=== PATIENT | female | born 1985 | race Caucasian/White ===

== ENCOUNTER 2017-11-10 13:05 | Emergency (ER) | payer OTHER ==
[~2017-11-10] VITALS: Ht 157.5 cm; Wt 61.2 kg
[2017-11-10] MEDS ORDERED: XANAX 0.5 MG0.5 M1 PO (14:51)
== END 2017-11-10 14:59 | disposition home or self-care (01) ==
LOC: EDBD 13:05 → ER 13:05
DX: M79.651 Pain in right thigh (principal)

== ENCOUNTER 2017-11-18 11:12 | Emergency (ER) | payer OTHER ==
[~2017-11-18] VITALS: Ht 157.5 cm; Wt 61.2 kg
[~2017-11-18 11:12] MED LIST: XANAX 0.5 MG0.5 M1 PO
[2017-11-18] MEDS ORDERED: MOBIC7.5 MG PO (12:29)
== END 2017-11-18 12:44 | disposition home or self-care (01) ==
LOC: ER 11:12
DX: S63.690A Other sprain of right index finger, initial encounter (principal); Z86.718 Personal history of other venous thrombosis and embolism; W23.0XXA Caught, crushed, jammed, or pinched between moving objects, initial encounter; Y93.89 Activity, other specified; Y92.89 Other specified places as the place of occurrence of the external cause; Y99.8 Other external cause status

== ENCOUNTER 2017-11-23 13:56 | Emergency (ER) | payer OTHER ==
[~2017-11-23] VITALS: Ht 157.5 cm; Wt 61.2 kg
[~2017-11-23 13:56] MED LIST changes: +MOBIC7.5 MG PO
[2017-11-23] MEDS ORDERED: MOBIC15 MG PO (14:33)
[2017-11-23] MEDS ORDERED: ULTRAM 50MG TAB50 MG PO (14:33)
[2017-11-23 15:00] VITALS: BP 127/88
== END 2017-11-23 15:01 | disposition home or self-care (01) ==
LOC: ER 13:56
DX: H92.01 Otalgia, right ear (principal)

== ENCOUNTER 2018-02-14 15:38 | Emergency (ER) | payer OTHER ==
[~2018-02-14] VITALS: Ht 157.5 cm; Wt 61.2 kg
[~2018-02-14 15:38] MED LIST changes: +MOBIC15 MG PO; +ULTRAM 50MG TAB50 MG PO
[2018-02-14 16:02] VITALS: BP 132/83
[2018-02-14] MEDS ORDERED: HYDROCODONE-AP1 EAC6 PO (17:14)
== END 2018-02-14 19:26 | disposition home or self-care (01) ==
LOC: ER 15:38
DX: M53.3 Sacrococcygeal disorders, not elsewhere classified (principal); Z90.10 Acquired absence of unspecified breast and nipple; W06.XXXA Fall from bed, initial encounter; Y93.89 Activity, other specified; Y92.89 Other specified places as the place of occurrence of the external cause; Y99.8 Other external cause status

== ENCOUNTER 2018-08-04 11:59 | Emergency (ER) | payer OTHER ==
[~2018-08-04] VITALS: Ht 162.6 cm; Wt 72.1 kg
[~2018-08-04 11:59] MED LIST changes: +HYDROCODONE-AP1 EAC6 PO
[2018-08-04 12:00] VITALS: BP 133/92
[2018-08-04 12:27] LABS: URINE BILIRUBIN NEGATIVE (Negative); URINE BLOOD 3+ (Negative); URINE CLARITY CLOUDY; URINE COLOR YELLOW; URINE GLUCOSE-RANDOM* NEGATIVE (Negative); URINE KETONES NEGATIVE (Negative); URINE LEUKOCYTES-REFLEX 2+ (Negative); URINE NITRITE-REFLEX NEGATIVE (Negative); URINE PROTEIN (DIPSTICK) TRACE (Negative)
[2018-08-04 12:34] LABS: SQUAMOUS 4-10 Moderate /LPF (0-3); URINE WBC-REFLEX >25 Many /HPF (0-5)
[2018-08-04 12:35] LABS: CASTS None Seen /LPF (None Seen); CRYSTALS None Seen /LPF (None Seen)
[2018-08-04] MEDS ORDERED: KEFLEX500 M2 PO (13:27)
[2018-08-04] MEDS ORDERED: FLAGYL500 M1 PO (13:27)
== END 2018-08-04 14:02 | disposition home or self-care (01) ==
LOC: ER 11:59
PROVIDERS: Emergency Medicine
DX: N76.0 Acute vaginitis (principal); B96.89 Other specified bacterial agents as the cause of diseases classified elsewhere; N39.0 Urinary tract infection, site not specified; F41.9 Anxiety disorder, unspecified; Z86.718 Personal history of other venous thrombosis and embolism; Z90.10 Acquired absence of unspecified breast and nipple

== ENCOUNTER 2018-10-20 10:24 | Emergency (ER) | payer OTHER ==
[~2018-10-20] VITALS: Ht 157.5 cm; Wt 68.0 kg
[~2018-10-20 10:24] MED LIST changes: +FLAGYL500 M1 PO; +KEFLEX500 M2 PO
[2018-10-20] MEDS ORDERED: TYLENOL325 MG PO (10:45)
[2018-10-20] MEDS ORDERED: IMITREX 25 MG T25 MG PO (10:46)
[2018-10-20 11:19] LABS: ABSOLUTE NEUTROPHILS 5.4 thou/uL (1.4-8.2); BASOPHILS 0.6 % (0.0-2.0); EOSINOPHILS 2.5 % (0.0-3.0); HEMATOCRIT 42.5 % (37.0-47.0); HEMOGLOBIN 13.9 gm/dL (12.0-15.0); LYMPHOCYTES 18.9 % (24.0-44.0); MCH 29.1 pg (26.0-34.0); MCHC 32.8 g/dL (28.0-37.0); MCV 88.5 fL (80.0-100.0); MONOCYTES 11.6 % (1.0-8.0); PLATELET COUNT 263 thou/uL (150-400); POLYS 66.4 % (36.0-66.0); RDW 13.7 % (10.5-14.5); WBC 8.1 thou/uL (4.0-11.0)
[2018-10-20 12:48] LABS: CALCIUM 8.6 mg/dL (8.5-10.1); CREATININE 0.8 mg/dL (0.6-1.0); POTASSIUM 3.8 mmol/L (3.5-5.1)
[2018-10-20 12:55] LABS: ALBUMIN 3.2 g/dL (3.4-5.0); TOTAL BILIRUBIN 0.3 mg/dL (<0.1-1.0); TOTAL PROTEIN 7.2 g/dL (6.4-8.2)
[2018-10-20] MEDS ORDERED: ONDANSETRON HCL4 M2 PO (13:50)
[2018-10-20] MEDS ORDERED: IMITREX 50 MG T50 MG PO (13:50)
[2018-10-20 14:09] VITALS: BP 134/68
== END 2018-10-20 14:14 | disposition home or self-care (01) ==
LOC: ER 10:24
PROVIDERS: Nurse Practitioner Family
DX: B34.9 Viral infection, unspecified (principal); R11.2 Nausea with vomiting, unspecified; F41.9 Anxiety disorder, unspecified; G43.909 Migraine, unspecified, not intractable, without status migrainosus; Z86.718 Personal history of other venous thrombosis and embolism; Z90.10 Acquired absence of unspecified breast and nipple

== ENCOUNTER 2020-01-14 10:30 | Emergency (ER) | payer OTHER ==
[~2020-01-14] VITALS: Ht 157.5 cm; Wt 68.0 kg
[~2020-01-14 10:30] MED LIST changes: +IMITREX 25 MG T25 MG PO; +IMITREX 50 MG T50 MG PO; +ONDANSETRON HCL4 M2 PO; +TYLENOL325 MG PO
[2020-01-14 10:33] VITALS: BP 130/89
== END 2020-01-14 11:36 | disposition home or self-care (01) ==
LOC: ER 10:30
DX: H83.8X1 Other specified diseases of right inner ear (principal); H92.01 Otalgia, right ear; R68.84 Jaw pain; F41.9 Anxiety disorder, unspecified; G43.909 Migraine, unspecified, not intractable, without status migrainosus; Z86.718 Personal history of other venous thrombosis and embolism; Z98.51 Tubal ligation status